=== PATIENT | male | born 1950 | race Caucasian/White ===

== ENCOUNTER → 2020-01-04 | Outpatient (CLI) | payer MEDICARE, SELFPAY ==
--- NOTE | 2020-01-04 13:44 | RAD_ITS ---
STUDY: X-RAY - PELVIS REASON FOR EXAM: Male, 69 years old. NO KNOWN INJURY. PATIENT STATES HX OF ARTHRITIS. TECHNIQUE: One view of the pelvis was obtained. COMPARISON: None. FINDINGS: There is a non-specific bowel gas pattern. Normal visualized soft tissue structures. Normal bilateral iliac wings, sacroiliac joints and visualized sacrum. Normal visualized bilateral superior and inferior pubic rami. Normal pubic symphysis. Normal ischial tuberosities. Normal visualized right femoral head. Normal right acetabulum. Normal right hip joint. Normal visualized left femoral head. Normal left acetabulum. Normal left hip joint. RAD/Pelvis 1 or 2 Views IMPRESSION: Normal x-ray examination of the pelvis. Electronically Signed: Lance Aviles MD at 14:02 EDT Tel , Service support ,
[2020-01-04 15:47] LABS: AST(SGOT) 31 U/L (15-37); Alanine Aminotransfer ALT/SGPT 41 U/L (16-61); Albumin, Serum 3.8 g/dL (3.2-5.0); Alkaline Phosphatase 64 U/L (45-117); Anion Gap 5 (5-15); BUN 10 mg/dL (7-18); BUN/Creat Ratio 13.6 RATIO (10-20); Calcium,Total 9.7 mg/dL (8.5-10.1); Chloride 105 mmol/L (98-107); Creatinine, Serum 0.74 mg/dL (0.70-1.30); EST Glomerular Filtration Rate 112 mL/min (>60); Est Glom Filt Rate - Afr Amer 136 mL/min (>60); Globulin 3.7 g/dL (2.2-4.2); Glucose 91 mg/dL (74-106); Protein, Total 7.5 g/dL (6.4-8.2); Rheumatoid Factor < 10.0 IU/mL (<15); Sodium Level 138 mmol/L (136-145)
[2020-01-04 16:07] LABS: Erythrocyte Sedimentation Rate 18 mm/hr (0-20)
[2020-01-04 16:11] LABS: Absolute Lymphocyte Count 1.47 X10^3/uL (0.83-4.51); Absolute Neutrophil Count 2.9 X10^3/uL (2.0-7.7); Basophil# 0.04 X10^3/uL; Basophil% 0.8 % (0-1); Eosinophil# 0.06 X10^3/uL; Eosinophils% 1.2 % (0-5); Hematocrit 45.1 % (40-54); Hemoglobin 15.3 g/dL (13.0-16.5); Lymphocyte # 1.47 X10^3/ul (4.0); Lymphocyte % 29.1 % (19-41); Mean Corp Hgb Conc 33.9 g/dL (32-36); Mean Corpuscular Hgb 34.2 pg (27.0-32.0); Mean Corpuscular Volume 100.9 fL (80-94); Mean Platelet Vol. 9.1 fl (6.2-12.0); Monocyte# 0.56 X10^3/uL; Monocyte% 11.1 % (0-10); NRBC Flagged by Analyzer 0 % (0-5); Neutrophil # 2.91 X10^3/uL (2.7-7.7); Neutrophil % 57.4 % (47-70); Platelet Count 204 K/mm3 (150-450); RBC Distribution Width CV 14.8 % (11.6-14.6); RBC Distribution Width SD 54.6 fl (35.1-43.9); Red Blood Count 4.47 M/mm3 (4.6-6.2); White Blood Count 5.1 K/mm3 (4.4-11.0)
[2020-01-05 09:44] LABS: Hepatitis B Surface Antibody Non-Reactive; Hepatitis B Surface Antigen Non-Reactive (Nonreactive); Hepatitis C Antibody Non-Reactive (Nonreactive)
[2020-01-06 18:43] LABS: ANTINUCLEAR ANTIBODIES DIRECT Negative (Negative)
[2020-01-07 08:40] LABS: CCP IgG Antibodies 6 units (0-19); Hepatitis B Core AB IgM Negative (Negative)
== END | disposition home or self-care (01) ==
LOC: MTLAB 13:39
PROVIDERS: PCP Family Medicine; Referring Provider Internal Medicine Rheumatology; Visit Provider Internal Medicine Rheumatology
DX: L40.59 Other psoriatic arthropathy (principal); L40.8 Other psoriasis; M17.0 Bilateral primary osteoarthritis of knee; K21.9 Gastro-esophageal reflux disease without esophagitis; G35 Multiple sclerosis; G47.33 Obstructive sleep apnea (adult) (pediatric); Z79.899 Other long term (current) drug therapy
CPT/HCPCS: 36415; 72170; 80053; 85025; 85652; 86038; 86140; 86200; 86431; 86705; 86706; 86803; 87340